=== PATIENT | male | born 1940 | race Native Hawaiian/Other Pacific Islander ===

== ENCOUNTER 2020-07-24 21:17 | Emergency (ER) | payer OTHER ==
[~2020-07-24] VITALS: Ht 180.3 cm; Wt 98.9 kg
[2020-07-24 21:18] VITALS: BP 112/72; TEMP 98.1
[2020-07-24 21:48] LABS: PLATELET COUNT 219 K/uL (142-355)
[2020-07-24 21:53] LABS: POTASSIUM 4.2 mmol/L (3.6-5.2)
[2020-07-24] MEDS ORDERED: DONEPEZIL HYDRO10 M1 PO (23:32)
[2020-07-24] MEDS ORDERED: ACEBUTOLOL200 MG PO (23:34)
[2020-07-24] MEDS ORDERED: FLUC200T PO (23:35)
[2020-07-24] MEDS ORDERED: TRIAMCINOLONE EX (23:39)
[2020-07-24] MEDS ORDERED: NYSTATIN EX (23:39)
[2020-07-24] MEDS ORDERED: ELIQUIS5 MG PO (23:41)
[2020-07-24] MEDS ORDERED: HALOPERIDOL0.5 MG PO (23:43)
[2020-08-08] MEDS ORDERED: MEMA5TAB PO (09:21)
[2020-08-08] MEDS ORDERED: MIRTAZAPINE7.5 MG PO (09:21)
[2020-08-08] MEDS ORDERED: OLAN2.5T2 PO (09:21)
[2020-08-08] MEDS ORDERED: ESCI10TA PO (09:21)
[2020-08-08] MEDS ORDERED: CHOL100034 PO (09:22)
[2020-08-20] MEDS ORDERED: PRESERVISION AREDS PO (00:22)
[2020-09-03] MEDS ORDERED: ACET-206 PO (16:46)
[2020-09-03] MEDS ORDERED: ESCI10TA PO (16:46)
[2020-09-03] MEDS ORDERED: FURO20TA67 PO (16:46)
[2020-09-03] MEDS ORDERED: QUET100T2 PO (16:47)
[2020-09-03] MEDS ORDERED: QUET25TA2 PO (16:47)
[2020-09-03] MEDS ORDERED: MEMA5TAB PO (16:47)
[2020-09-03] MEDS ORDERED: MAGNSUS68 PO (16:48)
== END 2020-07-24 22:25 | disposition still patient (30) ==
LOC: ED 21:17
PROVIDERS: Hospitalist
DX: F03.91 Unspecified dementia, unspecified severity, with behavioral disturbance (principal); Z72.811 Adult antisocial behavior; R45.850 Homicidal ideations; Z11.59 Encounter for screening for other viral diseases; Z04.6 Encounter for general psychiatric examination, requested by authority
CPT/HCPCS: 36415; 80053; 85027; 87635; 93005; 99283; U0003

== ENCOUNTER 2020-08-19 21:35 | Emergency (ER) | payer OTHER ==
[~2020-08-19] VITALS: Ht 180.3 cm; Wt 98.9 kg
[~2020-08-19 21:35] MED LIST: ACEBUTOLOL200 MG PO; CHOL100034 PO; DONEPEZIL HYDRO10 M1 PO; ELIQUIS5 MG PO; ESCI10TA PO; FLUC200T PO; HALOPERIDOL0.5 MG PO; MEMA5TAB PO; MIRTAZAPINE7.5 MG PO; NYSTATIN EX; OLAN2.5T2 PO; TRIAMCINOLONE EX
[2020-08-19 21:53] LABS: PLATELET COUNT 213 K/uL (142-355)
[2020-08-19 22:18] LABS: POTASSIUM 3.5 mmol/L (3.6-5.2)
[2020-08-19 23:41] VITALS: BP 105/51; TEMP 98.5
[2020-08-20] MEDS ORDERED: PRESERVISION AREDS PO (00:22)
== END 2020-08-19 23:41 | disposition other institution (70) ==
LOC: ED 21:41
PROVIDERS: Family Medicine
DX: R44.1 Visual hallucinations (principal); I50.9 Heart failure, unspecified; Z11.52 Encounter for screening for COVID-19; Z04.6 Encounter for general psychiatric examination, requested by authority
CPT/HCPCS: 36415; 80053; 81000; 85027; 87635; 93005; 99283; U0003